=== PATIENT | male | born 1960 | race Hispanic/Latino ===

== ENCOUNTER → 2023-04-12 | Day surgery (SDC) | payer BC ==
[~2023-04-12] MED LIST: ALTOPREV40 MG PO; ASPIRIN81 MG PO; AVODART0.5 MG PO; GLIPIZIDE-METF1 EAC2 PO; GLIPIZIDE5 MG PO; LACTATED RINGER'S 1,000 ML ONE; LIDOCAINE HCL 2% LOCAL INJ 5 ML SDV VIAL INJ ONE; MIDAZOLAM HCL 2 MG/2 ML VIAL ONE; PIOGLITAZONE30 MG PO; PROPOFOL IV EMULSION 10 MG/ML 20 ML VIAL ONE
[2023-04-12 15:39] VITALS: TEMP 97
[2023-04-12 16:00] VITALS: BP 130/80; PULSE 62; RESP 18; O2SAT 100
== END | disposition home or self-care (01) ==
LOC: OR 10:46
PROVIDERS: ATTEND Internal Medicine Gastroenterology
DX: Z12.11 Encounter for screening for malignant neoplasm of colon (principal); D12.0 Benign neoplasm of cecum; D12.2 Benign neoplasm of ascending colon; D12.4 Benign neoplasm of descending colon; K59.00 Constipation, unspecified; K64.8 Other hemorrhoids; E11.9 Type 2 diabetes mellitus without complications; R03.0 Elevated blood-pressure reading, without diagnosis of hypertension; E78.5 Hyperlipidemia, unspecified; Z01.810 Encounter for preprocedural cardiovascular examination; Z79.84 Long term (current) use of oral hypoglycemic drugs; Z79.82 Long term (current) use of aspirin; Z79.899 Other long term (current) drug therapy; Z68.30 Body mass index [BMI] 30.0-30.9, adult; Z80.0 Family history of malignant neoplasm of digestive organs
CPT/HCPCS: 36415; 45380; 45385; 82948; 93005; J2001; J2250; J2704; J7121